=== PATIENT | male | born 1950 | race Caucasian/White ===

== ENCOUNTER 2018-02-17 11:30 | Inpatient (IN) | payer OTHER ==
[~2018-02-17] VITALS: Ht 170.2 cm; Wt 83.6 kg
[~2018-02-17 11:30] MED LIST: ALBU0.63 NEB; AMLO10TA2 PO; AMLO2.5T PO; ATEN25TA PO; ATEN50TA41 PO; ATOR40TA78 PO; CLON0.12 PO; CLON2TAB9 PO; HYDR-3237 PO; HYDR-3240 PO; MIRT15TA4 PO; MIRT7.5T8 PO; OLAN10VI2 PO; OLAN20TA7 PO
[2018-02-25] MEDS ORDERED: CHOL2000 PO (09:52)
[2018-02-25] MEDS ORDERED: BUDE10.2 PO (09:52)
[2018-02-25] MEDS ORDERED: AMLO5TAB2 PO (09:52)
[2018-02-25] MEDS ORDERED: DULO20CA45 PO (09:52)
[2018-02-25] MEDS ORDERED: IPRA4AER PO (09:52)
[2018-02-25] MEDS ORDERED: MELA1TAB21 PO (09:52)
[2018-03-03] MEDS ORDERED: ACETAMINOPHEN 500 MG TABLET PO ONE (08:30)
[2018-03-03] MEDS ORDERED: GABAPENTIN 300 MG CAPSULE PO ONE (08:30)
[2018-03-03 08:47] VITALS: BP 121/84
[2018-03-03] MEDS ORDERED: THROMBIN 5,000 UNIT VIAL TP ONE (08:59)
[2018-03-03] MEDS ORDERED: BACITRACIN 50,000 UNIT ONE (08:59)
[2018-03-03] MEDS ORDERED: BUPIVACAINE/PF 0.5% ONE (08:59)
[2018-03-03] MEDS ORDERED: EPINEPHRINE 1 MG/ML, 1ML ONE (09:00)
[2018-03-03] MEDS ORDERED: LACTATED RINGERS 1,000 ML IV SCH (09:13)
[2018-03-03] MEDS ORDERED: MIDAZOLAM 1 MG/ML, 2ML ONE (09:31)
[2018-03-03] MEDS ORDERED: FENTANYL PF 250 MCG/5ML ONE (09:31)
[2018-03-03] MEDS ORDERED: PHENYLEPHRINE 10 MG/ML ONE (10:26)
[2018-03-03] MEDS ORDERED: OXYcodone 5 MG/5 ML ORAL.SOL UDC PO PRN (11:00)
[2018-03-03] MEDS ORDERED: LABETALOL 5MG/ML, 20ML IV PRN ×2 (11:00→15:30)
[2018-03-03] MEDS ORDERED: FENTANYL PF 100 MCG/2ML IV PRN (11:00)
[2018-03-03] MEDS ORDERED: HYDROmorphone 1 MG/ML, 1ML IV PRN (11:00)
[2018-03-03] MEDS ORDERED: DIPHENHYDRAMINE 50 MG/ML, 1ML IVPush PRN ×2 (11:00→15:30)
[2018-03-03] MEDS ORDERED: ONDANSETRON 2MG/ML, 2ML IV PRN ×2 (11:00→15:30)
[2018-03-03] MEDS ORDERED: hydrALAzine 20 MG/ML, 1ML IV PRN (11:00)
[2018-03-03] MEDS ORDERED: FENTANYL PF 100 MCG/2ML ONE (11:40)
[2018-03-03] MEDS ORDERED: NEOSTIGMINE 1 MG/ML, 10ML ONE (12:08)
[2018-03-03] MEDS ORDERED: PROPOFOL 10 MG/ML, 20ML ONE (12:08)
[2018-03-03] MEDS ORDERED: ROCURONIUM 10MG/ML,5ML ONE (12:08)
[2018-03-03] MEDS ORDERED: ONDANSETRON 2MG/ML, 2ML ONE (12:08)
[2018-03-03] MEDS ORDERED: SUCCINYLCHOLINE 20 MG/ML, 10ML ONE (12:08)
[2018-03-03] MEDS ORDERED: DEXAMETHASONE 4 MG/ML, 1ML ONE (12:08)
[2018-03-03] MEDS ORDERED: GLYCOPYRROLATE 0.2MG/1ML, 5ML ONE (12:08)
[2018-03-03] MEDS ORDERED: CEFAZOLIN 1,000 MG ONE (12:08)
[2018-03-03] MEDS ORDERED: ALBUTEROL/IPRATROPIUM 2.5MG/0.5MG, 3 ML NPPB PRN (15:00)
[2018-03-03] MEDS ORDERED: HYDROmorphone 2 MG/ML, 1ML IM PRN (15:30)
[2018-03-03] MEDS ORDERED: MAGNESIUM HYDROXIDE 8%, 30ML UDC PO PRN (15:30)
[2018-03-03] MEDS ORDERED: OXYcodone/APAP 5/325MG TABLET PO PRN (15:30)
[2018-03-03] MEDS ORDERED: HYDROmorphone 2MG TABLET PO PRN (15:30)
[2018-03-03] MEDS ORDERED: METHOCARBAMOL 750 MG TABLET PO PRN (15:30)
[2018-03-03] MEDS ORDERED: CYCLOBENZAPRINE 10 MG TABLET PO PRN (15:30)
[2018-03-03] MEDS ORDERED: HYDROcodone/APAP 5/325 TABLET PO PRN (15:30)
[2018-03-03] MEDS ORDERED: PROMETHAZINE 25 MG/ML, 1ML IM PRN (15:30)
[2018-03-03] MEDS ORDERED: BISACODYL 10 MG SUPP PR PRN (15:30)
[2018-03-03] MEDS: NS + 20MEQ KCL 1,000 ML IV SCH (16:05)
[2018-03-03] MEDS: CEFAZOLIN PMX 1GM/50ML 50 ML IVPB SCH (18:40)
[2018-03-03 19:32] VITALS: BP 142/78
[2018-03-03] MEDS ORDERED: ATENOLOL 50 MG TABLET PO SCH (21:00)
[2018-03-03] MEDS ORDERED: MIRTAZAPINE 15 MG TABLET PO SCH (21:00)
[2018-03-03] MEDS ORDERED: ATORVASTATIN 40 MG TABLET PO SCH (21:00)
[2018-03-03] MEDS ORDERED: DULOXETINE 20 MG CAPSULE.DR PO SCH (21:00)
[2018-03-03 23:53] VITALS: BP 130/73
[2018-03-04 03:08] VITALS: BP 124/74
[2018-03-04] MEDS: CEFAZOLIN PMX 1GM/50ML 50 ML IVPB SCH (03:32)
[2018-03-04] MEDS: NS + 20MEQ KCL 1,000 ML IV SCH (04:50)
[2018-03-04 05:20] LABS: BASOPHILS # (AUTO) 0.02 x10^3/uL (0-0.1); BASOPHILS % (AUTO) 0 % (0-1); EOSINOPHILS # (AUTO) 0.08 x10^3/uL (0-0.4); EOSINOPHILS % (AUTO) 1 % (1-7); LYMPHOCYTES # (AUTO) 1.47 x10^3/uL (1-3.4); LYMPHOCYTES % (AUTO) 11 % (22-44); MD NO; MEAN CORPUSCULAR HEMOGLOBIN 33.2 pg (27.5-34.5); MEAN CORPUSCULAR HGB CONC 34.3 g/dL (33.2-36.2); MEAN CORPUSCULAR VOLUME 96.9 fL (81-97); MONOCYTES # (AUTO) 1.01 x10^3/uL (0.2-0.8); MONOCYTES % (AUTO) 8 % (2-9); NEUTROPHILS # (AUTO) 10.46 x10^3/uL (1.8-6.8); NEUTROPHILS % (AUTO) 80 % (42-75); PLATELET COUNT 200 x10^3/uL (130-400); RED BLOOD COUNT 4.56 x10^6/uL (4.38-5.82); RED CELL DISTRIBUTION WIDTH 14.1 % (9.4-14.8)
[2018-03-04 05:27] LABS: ANION GAP 8 mmol/L (5-15); CALCIUM 8.3 mg/dL (8.5-10.1); CHLORIDE 112 mmol/L (98-107); CREATININE 0.83 mg/dL (0.7-1.3)
[2018-03-04 07:06] VITALS: BP 128/77
[2018-03-04] MEDS ORDERED: METH750T87 PO (08:02)
[2018-03-04] MEDS ORDERED: HYDR-3240 PO (08:02)
[2018-03-04] MEDS ORDERED: SENNA/DOCUSATE TABLET PO SCH (09:00)
[2018-03-04] MEDS ORDERED: OLANZAPINE 10 MG TABLET PO SCH (09:00)
[2018-03-04] MEDS ORDERED: AMLODIPINE 5 MG TABLET PO SCH (09:00)
== END 2018-03-04 13:36 | disposition home or self-care (01) | DRG 472 ==
LOC: EDSTATUS 11:30 → ORIP 03-03 07:41 → 4NOR 03-03 14:23 → DCLOUNGE 03-04 13:22
PROVIDERS: ADMIT Neurological Surgery; ATTEND Neurological Surgery
PROC: 0RG20A0 Fusion of 2 or more Cervical Vertebral Joints with Interbody Fusion Device, Anterior Approach, Anterior Column, Open Approach (ICD-10-PCS; 2018-03-03)
PROC: 0RB30ZZ Excision of Cervical Vertebral Disc, Open Approach (ICD-10-PCS; principal; 2018-03-03 10:30)
DX: M48.02 Spinal stenosis, cervical region (principal); M50.021 Cervical disc disorder at C4-C5 level with myelopathy; I10 Essential (primary) hypertension; E78.00 Pure hypercholesterolemia, unspecified; F31.9 Bipolar disorder, unspecified; F41.9 Anxiety disorder, unspecified; F17.200 Nicotine dependence, unspecified, uncomplicated; M47.22 Other spondylosis with radiculopathy, cervical region; J43.9 Emphysema, unspecified; Z98.1 Arthrodesis status; Z82.49 Family history of ischemic heart disease and other diseases of the circulatory system
CPT/HCPCS: 36415; 72040; J3490; 80048; 85025; 86850; 86900; 95938; 95941; C1713; C1776; J0171; J0690; J1100; J2250; J2270; J2405; J2704; J2710; J3010; J3480; J0330; J2370; J7120